=== PATIENT | female | born 2000 | race Caucasian/White ===

== ENCOUNTER 2024-09-06 15:13 | Emergency (ER) | payer OTHER, SELFPAY ==
[2024-09-06 15:27] VITALS: BP 126/85; PULSE 89; RESP 16; TEMP 36.9; O2SAT 97
--- NOTE | 2024-09-06 15:35 | ED.FEMALEGU ---
HPI - Female Genitourinary General Chief complaint: Urogenital-Female Stated complaint: tampon stuck Time Seen by Provider: 09/06/24 15:35 Source: patient, RN notes reviewed and old records reviewed Mode of arrival: ambulatory Limitations: no limitations History of Present Illness HPI Narrative: 23-year-old female presents to the [facility] with concerns she has a tampon stuck in the vagina. Patient reports it has been the nursing since p.m. last night. Currently on her menstrual cycle, started 3 days ago. Related Data Home Medications ?Medication ?Instructions ?Recorded ?Confirmed ?Last Taken ?Type albuterol sulfate 90 mcg/actuation inhalation 09/06/24 Unknown History aerosol inhaler Allergies Allergy/AdvReac Type Severity Reaction Status Date / Time No Known Allergies Allergy Verified 09/06/24 15:51 Review of Systems Review of Systems: All systems reviewed & are unremarkable except as noted in HPI and below Constitutional: Constitutional: Reports no additional constitutional complaints ENT: Reports system reviewed and no additional complaints, except as documented Cardiovascular: Cardiovascular: Reports no additional cardiovascular complaints, Denies chest pain and Denies dyspnea Respiratory: Respiratory: Reports no additional respiratory complaints, Denies chest congestion, Denies cough and Denies dyspnea Genitourinary: Genitourinary: Reports as per HPI Musculoskeletal: Musculoskeletal: Reports no additional musculoskeletal complaints Integumentary/Breasts: Skin/Breast: Reports system reviewed and no additional complaints, except as docu PMFSH Past Medical History Medical History Asthma Comments At the time of my signature, I reviewed and agree with the nursing past medical, surgical, social, and family history. There is no relevant family history pertinent to the patient complaint. Exam Const: General: cooperative, healthy appearing, comfortable, no acute distress, well developed, alert and well nourished Nutritional Appearance: well nourished Orientation/consciousness: patient oriented x3 Limitations: no limitations HENMT: Head: normal to inspection Eyes: General: appearance normal, both eyes and all related structures Alignment and Position: alignment normal Neck: Neck: normal visual inspection, full ROM, no lymphadenopathy and no meningeal signs Chest: Chest palpation & inspection: normal inspection of the chest Resp: Effort & Inspection: normal respiratory effort and able to speak in complete sentences Cardio: Rate: regular rate : General: Yes no CVA tenderness External Female Exam: normal external appearance Speculum Exam - Vagina: normal appearance of the vagina Speculum Exam - Cervix: normal appearance of the cervix and Other cervical findings present (Menses) Other: Chaperoned by Nicki ROMO, no foreign bodies noted. Patient currently on menstrual cycle Skin: General skin exam: normal color and no rashes or lesions noted Neuro: General: patient oriented x3, gait normal, moves all extremities and no meningeal signs Cognition (Neuro): normal cognition Speech: normal speech Gait exam (Neuro): Normal gait present Extrem: General: normal to inspection, full ROM, capillary refill normal and normal gait Psych: Appearance: grossly normal and well kempt Mental Status: mental status grossly normal Speech and movement: Normal speech and movement present and Clear speech present Affect: normal affect Attitude: cooperative Course Course Level of Care: Express Care Visit Vital Signs Vital signs: Vital Signs Temperature 98.5 F 09/06/24 15:27 Pulse Rate 89 09/06/24 15:27 Respiratory Rate 16 09/06/24 15:27 Blood Pressure 126/85 09/06/24 15:27 Pulse Oximetry 97 09/06/24 15:27 Oxygen Delivery Room Air 09/06/24 15:27 Temperature 98.5 F 09/06/24 15:27 Pulse Rate 89 09/06/24 15:27 Respiratory Rate 16 09/06/24 15:27 Blood Pressure 126/85 09/06/24 15:27 Pulse Oximetry 97 09/06/24 15:27 Oxygen Delivery Room Air 09/06/24 15:27 Reviewed MDM - Female Genitourinary MDM Narrative Medical decision making narrative: Patient sitting comfortably in exam room. Nontoxic, vitals stable. Patient is in no acute distress. Patient presents with concern for a tampon stuck. Pelvic exam done, chaperoned by Nicki ROMO No foreign bodies noted Patient appropriate for outpatient follow-up Discharge instructions reviewed with patient, as well as provided in writing per nursing staff. The instructions also include specific and strict return/GO TO THE ER as well as f/u information. All questions have been answered, and the patient deny any further questions with discharge and discharge plan. Some parts of this dictation were generated by voice recognition software and may contain typographical and/or grammatical inaccuracies. Differential Diagnosis Differential diagnosis: Likely other (Foreign body) Critical Care Time Critical Care Time Critical Care Time: No Discharge Plan Discharge Clinical Impression: Physically well but worried Patient Disposition: Home, Self-Care Condition: Stable Instructions: Antibiotic Form Additional Instructions: There was no tampon seen vaginally. It is important you do follow-up with a pick up worker provider and primary care provider to establish care. If you are having a hard time finding a physician please call our [facility] liaison at [phone]. Patient Language: Slovenian Prescriptions: No Action albuterol sulfate 90 mcg/actuation HFA aerosol inhaler INHALATION Follow-up/Referrals: Joaquin Ramesh MD [Physician] - PHYSICIAN,ADMISSION NURSE COORDINATOR [Primary Care Provider] - Temitope Sylvester DO [Physician] - Stand Alone Forms: Work/School Release IP Time of Disposition: 15:51
== END 2024-09-06 16:00 | disposition home or self-care (01) ==
PROVIDERS: Emergency Provider Nurse Practitioner
DX: Z03.823 Encounter for observation for suspected inserted (injected) foreign body ruled out (principal); J45.909 Unspecified asthma, uncomplicated
CPT/HCPCS: 99211; G0463

== ENCOUNTER 2024-09-25 08:55 | Outpatient (CLI) | payer OTHER, SELFPAY ==
--- OUTSIDE RECORDS SUMMARY | 2024-09-28 12:03 | XMS_ITS | Referral Summary ---
Author Organization [facility] Address [address] [place] [address] Care Team Providers Care Cloud Engagement Partner Name Role Phone Provider, No Pcp Primary Care Provider Unavailab le Source Comments [facility],non-owned Affiliates and Associated Physician Practices is amultiple site organization consisting of ambulatory clinics and hospital sitesin [place], [place]. This disclosure is being madepursuant to the Care Everywhere program and may not contain all information available regarding this patient. Last updated 18.[facility] Encounters Date Type Department Care Team Description 09/25/2024 Telephone [facility] - Endocrinology [address] [place] [phone] Kari Perez MD 09/08/2024 Orders Only [facility] - Endocr[facility] [address] [place] [phone] Kari Perez MD Hirsutism 09/04/2024 Telephone [facility] Endocrinology [address] [place] [phone] Kari Perez MD 08/09/2024 Travel 08/09/2024 2:20 PM VISUAL DESIGNER Office Visit [facility] - Endocrinology [address] [place] [phone] Kari Perez MD Hirsutism (Primary Dx) from Last 3 Months Allergies Active Allergy Reactions Criticality Noted Date Comments Shellfish-Derived Products Unknown Medications * Be aware that medications may not be up to date on this document. Alwaysverify current medications with the patient. Medication Sig Dispensed Refills Start Date End Date Status dexAMETHasone (Decadron) 1 MG tabletIndications: Hirsutism Take 1 (one) tablet by mouth once for 1 dose 1 tablet 09/08/2024 Active ketoconazole (Nizoral) 2 % shampooIndications :Rash and other nonspecific skin eruption Apply to wet hair, leave on for 3 minutes, then rinse; three times weekly. 30 days supply 120 mL 2 03/03/2024 09/08/2024 Discontinued (List Clean-Up) fluconazole (Diflucan) 150 MG tabletIndications: Rash and other nonspecific skin eruption Take 1 tablet by mouth, then in another week take another table by mouth 2 tablet 03/03/2024 09/08/2024 Discontinued (List Clean-Up) dexAMETHasone (Decadron) 1 MG tabletIndications: Hirsutism Take 1 (one) tablet by mouth once daily 30 tablet 08/09/2024 09/08/2024 Discontinued (Reorder) Active Problems No known active problems Social History Tobacco Use Types Packs/Day Years Used Date Smoking Tobacco: Never Sex and Gender Information Value Date Recorded Sex Assigned at Not on file Gender Identity Not on file Sexual Orientation Not on file Last Filed Vital Signs Vital Sign Reading Time Taken Comments Blood Pressure 107/79 08/09/2024 3:04 PM VISUAL DESIGNER Pulse 95 08/09/2024 3:04 PM VISUAL DESIGNER Temperature - - Respiratory Rate - - Oxygen Saturation 96% 08/09/2024 3:04 PM VISUAL DESIGNER Inhaled Oxygen Concentration - - Weight 87.1 kg (192 lb) 08/09/2024 3:04 PM VISUAL DESIGNER Height 165.1 cm (5' 5 ) 08/09/2024 3:04 PM VISUAL DESIGNER Body Mass Index 31.95 08/09/2024 3:04 PM VISUAL DESIGNER Plan of Treatment Upcoming Encounters Date Type Department Care Team (Late st Contact Info) Description 11/15/2024 3:40 PM CDT Office Visit [facility] - Endocrinology [address] [facility] [place] [phone] Kari Hernadez MD [address] [facility] [place] [address] Procedures Procedure Name Priority Date/Time Associated Diagnosis Comments HEMOGLOBIN A1C - POINT OF CARE (AMB) [facility] Routine 08/09/2024 3:19 PM VISUAL DESIGNER Hirsutism from Last 3 Months Results * HEMOGLOBIN A1C - POINT OF CARE (AMB) [facility] (08/09/2024 3:19 PM VISUAL DESIGNER) Hemoglobin A1c POCT 7.1 % LESLEY Johnson [facility] BLOOD SPECIMEN / Unknown 08/09/2024 3:19 PM VISUAL DESIGNER Dang Jay MD LAB - POINT OF CARE ORDERABLES [facility] [address] [facility] [address] [facility], [place] [address], [facility] [phone] from Last 3 Months Care Teams Cloud Engagement Partner Relationship Specialty Start Date End Date Provider, No Pcp PCP - General 03/08/24
--- OUTSIDE RECORDS SUMMARY | 2024-09-28 12:03 | XMS_ITS | Encounter Summary ---
Author Organization [facility] Address [address] [facility] [place] [address] Care Team Providers Care Perinatal Instructor Name Role Phone Provider, No Pcp Primary Care Provider Unavailab le Encounter Details Date Type Department Care Team (Late st Contact Info) Description 09/25/2024 Telephone [facility] - Endocr[facility]ology [address] [facility] [place] [phone] Kari Hernadez MD [address] [facility] [place] [address] Social History Tobacco Use Types Packs/Day Years Used Date Smoking Tobacco: Never Sex and Gender Information Value Date Recorded Sex Assigned at Not on file Gender Identity Not on file Sexual Orientation Not on file documented as of this encounter Miscellaneous Notes * Telephone Encounter - Ceci Sweeney - 09/25/2024 8:29 AM CST Current Provider: Raymond Kirkpatrick/ Dr. Howard Reason for Call: Ms. Rachel Mckeon has numerous orders for labs. She is at [facility], she did take the pill so they need the labs faxed over [employer] so sera can get labs done. It is a two day process/ FAX [phone]. They are there now and would like to get it completed. Please call father when faxed. Ramiro Farmer - [phone] Thanks. Patient Call Back Number: [phone] Father Ramiro Farmer AL SPECIALIST documented in this encounter Plan of Treatment Upcoming Encounters Date Type Department Care Team (Late Contact Info) Description 11/15/2024 3:40 PM CDT Office Visit [facility] - Endocrinology [address] [facility] [place] [address] Kari Hernadez MD [address] [facility] [place] [address] documented as of this encounter Visit Diagnoses Not on filedocumented in this encounter Care Teams Perinatal Instructor Relationship Specialty Start Date End Date Provider, No Pcp PCP - General 03/08/24 documented as of this encounter
--- OUTSIDE RECORDS SUMMARY | 2024-09-28 12:03 | XMS_ITS | Clinical Summary ---
Author Organization [facility] Address [address] [place] [address] Care Team Providers Care Equipment Tester Name Role Phone Provider, No Pcp Primary Care Provider Unavailab le Source Comments [facility],non-owned Affiliates and Associated Physician Practices is amultiple site organization consisting of ambulatory clinics and hospital sitesin [place], [place], [place] and [place]. This disclosure is being madepursuant to the Care Everywhere program and may not contain all information available regarding this patient. Last updated 18.[facility] Allergies Active Allergy Reactions Criticality Noted Date [...] (Reorder) Active Problems No known active problems Encounters Date Type Department Care Team Description 09/25/2024 Telephone [facility] - Endocrinology [address] [place] [phone] Kari Perez MD 09/08/2024 Orders Only [facility] - Endocrinology [address] [place] [phone] Kari Perez MD Hirsutism 09/04/2024 Telephone [facility] Endocrinology [address] [place] [phone] Kari Perez MD 08/09/2024 2:20 PM SKY DIVER Office Visit [facility] - Endocrinology [address] [place] [phone] Kari Perez MD Hirsutism (Primary Dx) 08/09/2024 Travel from Last 3 Months Social History Tobacco Use Types Packs/Day Years Used Date Smoking Tobacco: Never Sex and Gender Information Value Date Recorded Sex Assigned at Not on file Gender Identity Not on file Sexual Orientation Not on file Last Filed Vital Signs Vital Sign Reading Time Taken Comments Blood Pressure 107/79 08/09/2024 3:04 PM SKY DIVER Pulse 95 08/09/2024 3:04 PM SKY DIVER Temperature - - Respiratory Rate - - Oxygen Saturation 96% 08/09/2024 3:04 PM SKY DIVER Inhaled Oxygen Concentration - - Weight 87.1 kg (192 lb) 08/09/2024 3:04 PM SKY DIVER Height 165.1 cm (5' 5 ) 08/09/2024 3:04 PM SKY DIVER Body Mass Index 31.95 08/09/2024 3:04 PM SKY DIVER Plan of Treatment Upcoming Encounters Date Type Department Care Team (Late st Contact Info) Description 11/15/2024 3:40 PM CDT Office Visit [facility] - Endocrinology [address] [place] [phone] Kari Hernadez MD [address] [place] [address] Health Maintenance Due Date Last Done Comments PAP SMEAR 2000 HIV SCREENING 2015 HPV VACCINE (1 - 3-dose series) 2015 CHLAMYDIA/GONORRHEA SCREENING 2016 MENINGOCOCCAL (Group B) VACC INE (1 of 2 - Standard) 2016 HEPATITIS C SCREENING 09/29/2018 DTAP/TDAP/TD VACCINES (1 - Tdap) 2019 HEPATITIS B VACCINE (1 of 3 - 19+ 3-dose series) 2019 COVID-19 VACCINE (1 - 2023-2 5 season) 2024 INFLUENZA VACCINE (#1) 2024 DEPRESSION SCREENING 09/06/2024 ZOSTER VACCINE (1 of 2) 2050 HIB VACCINE Aged Out No longer eligi ble based on patient's age to complete this topic MENINGOCOCCAL VACCINE Aged Out No bridget maine eligible based on patient's age to complete this topic PNEUMOCOCCAL VACCINE Aged Out No long er eligible based on patient's age to complete this topic Procedures Procedure Name Priority Date/Time Associated Diagnosis Comments HEMOGLOBIN A1C - POINT OF CARE (AMB) [facility] Routine 08/09/2024 3:19 PM SKY DIVER Hirsutism from Last 3 Months Results * HEMOGLOBIN A1C - POINT OF CARE (AMB) [facility] (08/09/2024 3:19 PM SKY DIVER) Hemoglobin A1c POCT 7.1 % [facility] [address] BLOOD SPECIMEN / Unknown 08/09/2024 3:19 PM SKY DIVER Dang Jay MD LAB - POINT OF CARE ORDERABLES [facility] [address] [address] [facility] [place] [address], [facility] [phone] from Last 3 Months Care Teams Equipment Tester Relationship Specialty Start Date End Date Provider, No Pcp PCP - General 03/08/24
--- OUTSIDE RECORDS SUMMARY | 2024-09-28 12:03 | XMS_ITS | Encounter Summary ---
Author Organization [facility] Address [facility] [place] [address] Care Team Providers Care Bar Catcher Name Role Phone Provider, No Pcp Primary Care Provider Unavailab le Reason for Visit * Reason Onset Date Comments Returned Call 03/03/2024 Encounter Details Date Type Department Care Team (Late Contact Info) Description 03/03/2024 Telephone [facility] Dermatology [address] [facility], [place] [phone] Connie Angeles MD [address] [place] [address] Returned Call Social History Tobacco Use Types Packs/Day Years Used Date Smoking Tobacco: Never Assessed Sex and Gender Information Value Date Recorded Sex Assigned at Not on file Gender Identity Not on file Sexual Orientation Not on file documented as of this encounter Miscellaneous Notes * Telephone Encounter - Nargis Perry - 03/03/2024 1:33 PM CDT Pts father called stating they need to speak with the Dr about a voicemail that was sent and need clarification from. documented in this encounter Plan of Treatment Upcoming Encounters Date Type Department Care Team (Late st Contact Info) Description 11/15/2024 3:40 PM CDT Office Visit [facility] - Endocrinology [address] [facility] [place] [phone] Kari Hernadez MD [address] [place] [address] documented as of this encounter Visit Diagnoses Not on filedocumented in this encounter Care Teams Bar Catcher Relationship Specialty Start Date End Date Provider, No Pcp PCP - General 03/08/24 documented as of this encounter
--- OUTSIDE RECORDS SUMMARY | 2024-09-28 12:03 | XMS_ITS | Encounter Summary ---
Author Organization [facility] Address [address] [place] [address] [place] [address] Care Team Providers Care Behavioral Health Counselor Name Role Phone Provider, No Pcp Primary Care Provider Unavailab le Encounter Details Date Type Department Care Team (Late Contact Info) Description 09/04/2024 Telephone [facility] - Endocrinology [address] [place] [phone] Kari Hernadez MD [address] [facility] [place] [address] Social History Tobacco Use Types Packs/Day Years Used Date Smoking Tobacco: Never Sex and Gender Information Value Date Recorded Sex Assigned at Not on file Gender Identity Not on file Sexual Orientation Not on file documented as of this encounter Miscellaneous Notes * Telephone Encounter - Verna Aguero - 09/04/2024 12:17 PM CST Patient called needing a singular pill needed for a blood test. States the pharmacy never received the prescription. Call back number is [phone] Can leave detailed [id number] - [address] [place] [phone] [address] IO HAND documented in this encounter Plan of Treatment Upcoming Encounters Date Type Department Care Team (Late Contact Info) Description 11/15/2024 3:40 PM CDT Office Visit [facility] - Endocrinology [address] [place] [phone] Kari Hernadez MD [address] [facility] [place], [place] [id number] documented as of this encounter Visit Diagnoses Not on filedocumented in this encounter Care Teams Behavioral Health Counselor Relationship Specialty Start Date End Date Provider, No Pcp PCP - General 03/08/24 documented as of this encounter
--- OUTSIDE RECORDS SUMMARY | 2024-09-28 12:03 | XMS_ITS | Patient Health Summary ---
Author Organization [facility] Address [address] [place] [address] Care Team Providers Care Legal Referee Name Role Phone Provider, No Pcp Primary Care Provider Unavailab le Note from [facility],non-owned Affiliates and Associated Physician Practices is amultiple site organization consisting of ambulatory clinics and hospital sitesin [place], [place], [place] and [place]. This disclosure is being madepursuant to the Care Everywhere program and may not contain all information available regarding this patient. Last updated 18.[facility] Allergies * Shellfish-Derived Products(Unknown) Medications * Be aware that medications may not be up to date on this document. Alwaysverify current medications with the patient. * dexAMETHasone (Decadron) 1 MG tablet(Started 09/08/2024) Take 1 (one) tablet by mouth once for 1 dose Ended Medications* ketoconazole (Nizoral) 2 % shampoo(Started 03/03/2024) (Discontinued) Apply to wet hair, leave on for 3 minutes, then rinse; three times weekly. 30 days supply 2 refills by 03/03/2025 * fluconazole (Diflucan) 150 MG tablet(Started 03/03/2024)(Discontinued) Take 1 tablet by mouth, then in another week take another table by mouth * dexAMETHasone (Decadron) 1 MG tablet(Started 08/09/2024)(Discontinued) Take 1 (one) tablet by mouth once daily Active Problems No known active problems Social History Tobacco Use Types Packs/Day Years Used Date Smoking Tobacco: Never Sex and Gender Information Value Date Recorded Sex Assigned at Not on file Gender Identity Not on file Sexual Orientation Not on file Last Filed Vital Signs Vital Sign Reading Time Taken Comments Blood Pressure 107/79 08/09/2024 3:04 PM PLOW MECHANIC Pulse 95 08/09/2024 3:04 PM PLOW MECHANIC Temperature - - Respiratory Rate - - Oxygen Saturation 96% 08/09/2024 3:04 PM PLOW MECHANIC Inhaled Oxygen Concentration - - Weight 87.1 kg (192 lb) 08/09/2024 3:04 PM PLOW MECHANIC Height 165.1 cm (5' 5 ) 08/09/2024 3:04 PM PLOW MECHANIC Body Mass Index 31.95 08/09/2024 3:04 PM PLOW MECHANIC Procedures * HEMOGLOBIN A1C - POINT OF CARE (AMB) [facility](Performed 08/09/2024) Performed for Hirsutism * [place] PUNCH BX SKIN EA SEP ADDL(Performed 02/28/2024) Performed for Rash and other nonspecific skin eruption * [place] PUNCH BX SKIN SINGLE LESION(Performed 02/28/2024) Performed for Rash and other nonspecific skin eruption * DERMATOPATHOLOGY(Performed 02/28/2024) Performed for Rash and other nonspecific skin eruption Results * HEMOGLOBIN A1C - POINT OF CARE (AMB) [facility] (08/09/2024 3:19 PM PLOW MECHANIC) Hemoglobin A1c POCT 7.1 % [address] BLOOD SPECIMEN / Unknown 08/09/2024 3:19 PM PLOW MECHANIC Dang Jay MD LAB - POINT OF CARE ORDERABLES [address] [place] [address], [facility] [phone] * [place] PUNCH BX SKIN SINGLE LESION, [place] PUNCH BX SKIN EA SEP ADDL (02/28/2024 3:06 PM CDT) Narrative Odilia Poon MD - 02/28/2024 3:06 PM CDT Connie Angeles MD ? 02/28/2024 ??3:06 PM Risks, benefits and alternatives to punch biopsy were discussed with the patient. Verbal consent was obtained. Location: right flank A and B Punch biopsy: 4mm Skin prep: Alcohol Anesthesia: Lidocaine 1% with epinephrine Closure: 4-0 nylon suture Dressing and wound care discussed. Patient agrees to phone call for results and message if not available. Connie Angeles MD PGY-2 Dermatology Resident Odilia Poon MD PROCEDURE/MINOR SURG ICAL ORDERABLES * DERMATOPATHOLOGY (02/28/2024 12:00 AM CDT) Case Report Dermatopathology Report ? Case: [id number] ? Authorizing Provider: ??Odilia Poon MD ? Collected: ? 02/28/2024 12:00 AM ? Ordering Location: ? [facility] - ??Received: ?02/28/2024 04:03 PM ? Dermatology ? Pathologist: ? Jessica Summers, ? MD ? Specimens: ?? A) - Skin, right flank A ? B) - Skin, right flank B ? 4 4:28 PM CDT DERMATOPATHOLOGY LABORATORY Final Diagnosis Specimen A. SKIN, right flank A: TINEA VERSICOLOR (B36.0) Specimen B. SKIN, right flank B: TINEA VERSICOLOR (B36.0) 4 4:28 PM T DERMATOPATHOLOGY LABORATORY Clinical History A-B: Vitiligo v TV v other 4 4:28 PM T DERMATOPATHOLOGY LABORATORY Gross Description Specimen A: Received is one formalin filled container labeled with the patient's name and designated right flank A. The specimen consists of a punch biopsy measuring 3x3x3 mm. Jar 0. Specimen B: Received is one formalin filled container labeled with the patient's name and designated right flank B. The specimen consists of a punch biopsy measuring 4x4x4 mm. Jar 0. 4 4:28 PM T DERMATOPATHOLOGY LABORATORY Microscopic Description Specimen A. SKIN, right flank A: In the stratum corneum, there are focal basophilic hyphae and spores that resemble spaghetti and meatballs which are highlighted by a Grocott's methenamine silver (GMS) stain. MART-1/Melan-A staining highlights regular periodicity of melanocytes along the dermoepidermal junction. Redbird Sherrie stain highlights melanin in the epidermis. Specimen B. SKIN, right flank B: In the stratum corneum, there are numerous basophilic hyphae and spores that resemble spaghetti and meatballs which are highlighted by a Grocott's methenamine silver (GMS) stain. MART-1/Melan-A staining highlights regular periodicity of melanocytes along the dermoepidermal junction. Yeny Sherrie stain highlights melanin in the epidermis. 4:28 PM CDT DERMATOPATHOLOGY LABORATORY Disclaimer An external and internal positive and negative controls are appropriate for the histochemical, immunohistochemical and immunofluorescence stain(s) in this case (if any), except where stated explicitly. The performance characteristics of the stain(s) cited in this report were developed and its performance characteristic determined by the Dermatopathology Laboratory at [facility], directed by Dr. Barrett Perrin. These tests need not be, and therefore are not, approved by the [place] Food and Drug Administration. The tests are used for clinical purposes. Billing Codes Specimen Charges Stain Charges 57952 21442 1 1 92574 14558 72310 65914 98517 23583 1 1 1 1 1 1 4:28 PM CDT DERMATOPATHOLOGY LABORATORY Embedded Images 4:28 PM CDT DERMATOPATHOLOGY LABORATORY Pathology/Cytology TISSUE SPECIMEN FROM SKIN / Unknown 02/28/2024 02/28/2024 4:03 PM CDT Miscellaneous samples (specimen) TISSUE SPECIMEN FROM SKIN / Unknown 02/28/2024 02/28/2024 4:03 PM CDT Odilia Poon MD LAB - PATHOLOGY/CYTO LOGY ORDERABLES DERMATOPATHOLOGY LABORATORY [facility] - Department of Dermatology [address], [address] [phone] Care Teams Legal Referee Relationship Specialty Start Date End Date Provider, No Pcp PCP - General 03/08/24
--- OUTSIDE RECORDS SUMMARY | 2024-09-28 12:04 | XMS_ITS | Clinical Summary ---
Author Organization [facility] Address [address] [place] [address]. [place] [address] [place] [address] Care Team Providers Care Aluminum Pool Installer Name Role Phone None, Provider MD Primary Care Provider Unavaila ble Allergies Active Allergy Reactions Criticality Noted Date Comments Shellfish-Derived Products Unknown 0 Medications No known medications Active Problems No known active problems Social History Tobacco Use Types Packs/Day Years Used Date Smoking Tobacco: Every Day Electronic Cigarettes Smokeless Tobacco: Never Tobacco Cessation:Ready to Q uit: Not Asked; Counseling Given: Not Answered Comments No Sex and Gender Information Value Date Recorded Sex Assigned at Not on file Legal Sex Female 9:19 AM CDT Gender Identity Not on file Sexual Orientation Not on file Last Filed Vital Signs Vital Sign Reading Time Taken Comments Blood Pressure 91/64 04/20/2024 8:30 PM CDT Pulse 71 04/20/2024 8:30 PM CDT Temperature 37 ??C (98.6 ??F) 04/20/2024 8:30 PM CDT Respiratory Rate 17 04/20/2024 8:30 PM CDT Oxygen Saturation 96% 04/20/2024 8:30 PM CDT Inhaled Oxygen Concentration - - Weight 91.4 kg (201 lb 8 oz) 04/20/2024 6:37 PM CDT Height 162.6 cm (5' 4 ) 04/20/2024 6:37 PM CDT Body Mass Index 34.59 04/20/2024 6:37 PM CDT Plan of Treatment Health Maintenance Due Date Last Done Comments Cervical Cancer Screening Pap Smear (Age 21 to 29) Every 3 Years 2000 Cervical Cancer Screening 2000 Annual Physical 2003 Pneumococcal Vaccine: Pediatrics (0 to 5 Years) and At-Risk Patients (6 to 64 Years) (1 of 2 - PCV) 2006 DTaP, Tdap and Td Vaccines (6 - Tdap) 2011 01/13/2005, 12/28/2001, 04/18/2001, Additional history exists HPV Vaccines (1 - 3-dose series) 2015 Hepatitis C 2018 Hepatitis B Vaccines (1 of 3 - 19+ 3-dose series) 2019 COVID-19 Vaccine (1 - 2023- season) 2024 Influenza Adult (#1) 2024 Meningococcal Vaccine Completed 06/07/2018 RSV Immunizations Under 20 Months Aged Out No longer eligible based on patient's age to complete this topic Insurance Care Teams Aluminum Pool Installer Relationship Specialty Start Date End Date None, Provider, MD PCP - General UNKNOWN PHYSICIAN SPECIALTY 07/09/23
== END 2024-09-25 08:56 | disposition home or self-care (01) ==
DX: L68.0 Hirsutism (principal)
CPT/HCPCS: 36415; 80299

== ENCOUNTER 2024-11-10 10:15 | Outpatient (CLI) | payer OTHER, SELFPAY ==
--- OUTSIDE RECORDS SUMMARY | 2024-11-10 11:13 | XMS_ITS | Encounter Summary ---
Author Organization [facility] Address [employer] [place] [address] Care Team Providers Care Coal Screener Name Role Phone Provider, No Pcp Primary Care Provider Unavailab le Encounter Details Date Type Department Care Team (Late Contact Info) Description 09/04/2024 Telephone [facility] - Endocrinology [address] [place] [phone] Kari Montano MD [address] [place] [phone] Social History Tobacco Use Types Packs/Day Years [...] received the prescription. Call back number is [phone] Can leave detailed [id number] - [phone] [place] [phone] [address] TRAILER MECHANIC documented in this encounter Plan of Treatment Upcoming Encounters Date Type Department Care Team (Late Contact Info) Description 11/15/2024 3:40 PM CDT Office Visit [facility] - Endocrinology [address] [place] [phone] Kari Montano MD [address] [place] [phone] documented as of this encounter Visit Diagnoses Not on filedocumented in this encounter Care Teams Coal Screener Relationship Specialty Start Date End Date Provider, No Pcp PCP - General 03/08/24 documented as of this encounter
--- OUTSIDE RECORDS SUMMARY | 2024-11-10 11:13 | XMS_ITS | Clinical Summary ---
Author Organization [facility] Address [address] [place] [address] Care Team Providers Care Refrigerator Cabinetmaker Name Role Phone Provider, No Pcp Primary Care Provider Unavailab le Source Comments [facility],non-owned Affiliates and Associated Physician Practices is amultiple site organization consisting of ambulatory clinics and hospital sitesin [place], [place], [place] and [place]. This disclosure is being madepursuant to the Care Everywhere program and may not contain all information available regarding this patient. Last updated 18.[facility] [employer] Allergies Active Allergy Reactions Criticality Noted Date Comments Shellfish-Derived Products Unknown Medications * Be aware that medications may not be up to date on this document. Alwaysverify current medications with the patient. Medication Sig Dispensed Refills Start Date End Date Status dexAMETHasone (Decadron) 1 MG tabletIndications:Hirs utism Take 1 (one) tablet by mouth once for 1 dose 1 tablet 09/08/2024 Active Active Problems No known active problems Encounters Date Type Department Care Team Description 09/25/2024 Telephone [facility] - Endocrinology [address] [place] [address], [place] [phone] Kari Montano MD 09/08/2024 Orders Only [facility] - Endocrinology [address] [place] [phone] Kari Montano MD Hirsutism 09/04/2024 Telephone [facility] - Endocrinology [address] [place] [place] [phone] Kari Montano MD from Last 3 Months Social History Tobacco Use Types Packs/Day Years Used Date Smoking Tobacco: Never Sex and Gender Information Value Date Recorded Sex Assigned at Not on file Gender Identity Not on file Sexual Orientation Not on file Last Filed Vital Signs Vital Sign Reading Time Taken Comments Blood Pressure 107/79 08/09/2024 3:04 PM SECURITY CONTROL ROOM OFFICER Pulse 95 08/09/2024 3:04 PM SECURITY CONTROL ROOM OFFICER Temperature - - Respiratory Rate - - Oxygen Saturation 96% 08/09/2024 3:04 PM SECURITY CONTROL ROOM OFFICER Inhaled Oxygen Concentration - - Weight 87.1 kg (192 lb) 08/09/2024 3:04 PM SECURITY CONTROL ROOM OFFICER Height 165.1 cm (5' 5 ) 08/09/2024 3:04 PM SECURITY CONTROL ROOM OFFICER Body Mass Index 31.95 08/09/2024 3:04 PM SECURITY CONTROL ROOM OFFICER Plan of Treatment Upcoming Encounters Date Type Department Care Team (Late st Contact Info) Description 11/15/2024 3:40 PM CDT Office Visit [facility] - Endocrinology [address] [facility] [place] [phone] Kari Montano MD [address] [place] [address] Health Maintenance Due Date Last Done Comments PAP SMEAR 2000 HIV SCREENING 2015 HPV VACCINE (1 - 3-dose series) 2015 CHLAMYDIA/GONORRHEA SCREENING 2016 HEPATITIS C SCREENING 09/29/2018 DTAP/TDAP/TD VACCINES (1 - Tdap) 2019 HEPATITIS B VACCINE (1 of 3 - 19+ 3-dose series) 2019 COVID-19 VACCINE (1 - 2023-2 5 season) 2024 INFLUENZA VACCINE (#1) 2024 DEPRESSION SCREENING 09/06/2024 ZOSTER VACCINE (1 of 2) 2050 HIB VACCINE Aged Out No longer eligi ble based on patient's age to complete this topic MENINGOCOCCAL (Group B) VACCINE Aged Out No longer eligible based on patient's age to complete this topic MENINGOCOCCAL VACCINE Aged Out No bridget maine eligible based on patient's age to complete this topic PNEUMOCOCCAL VACCINE Aged Out No long er eligible based on patient's age to complete this topic Care Teams Refrigerator Cabinetmaker Relationship Specialty Start Date End Date Provider, No Pcp PCP - General 03/08/24
--- OUTSIDE RECORDS SUMMARY | 2024-11-10 11:13 | XMS_ITS | Referral Summary ---
Author Organization [facility] Address [address] [place] [address] Care Team Providers Care Letter Stamping Machine Operator Name Role Phone Provider, No Pcp Primary Care Provider Unavailab le Source Comments [facility],non-owned Affiliates and Associated Physician Practices is amultiple site organization consisting of ambulatory clinics and hospital sitesin [place], [place], [place] and [place]. This disclosure is being madepursuant to the Care Everywhere program and may not contain all information available regarding this patient. Last updated 18.[facility] Encounters Date Type Department Care Team Description 09/25/2024 Telephone [facility] - Endocrinology [address] [place] [address], [place] [phone] Kari Montano MD 09/08/2024 Orders Only [facility] - Endocrinology [address] [place] [phone] Kari Montano MD Hirsutism 09/04/2024 Telephone [facility] - Endocrinology [address] [place] [phone] Kari Montano MD from Last 3 Months Allergies Active Allergy [...] Active Active Problems No known active problems Social History Tobacco Use Types Packs/Day Years Used Date Smoking Tobacco: Never Sex and Gender Information Value Date Recorded Sex Assigned at Not on file Gender Identity Not on file Sexual Orientation Not on file Last Filed Vital Signs Vital Sign Reading Time Taken Comments Blood Pressure 107/79 08/09/2024 3:04 PM ELECTRICAL CONTROL ASSEMBLER Pulse 95 08/09/2024 3:04 PM ELECTRICAL CONTROL ASSEMBLER Temperature - - Respiratory Rate - - Oxygen Saturation 96% 08/09/2024 3:04 PM ELECTRICAL CONTROL ASSEMBLER Inhaled Oxygen Concentration - - Weight 87.1 kg (192 lb) 08/09/2024 3:04 PM ELECTRICAL CONTROL ASSEMBLER Height 165.1 cm (5' 5 ) 08/09/2024 3:04 PM ELECTRICAL CONTROL ASSEMBLER Body Mass Index 31.95 08/09/2024 3:04 PM ELECTRICAL CONTROL ASSEMBLER Plan of Treatment Upcoming Encounters Date Type Department Care Team (Late st Contact Info) Description 11/15/2024 3:40 PM CDT Office Visit [facility] - Endocrinology [address] [facility], [place] [phone] Kari Montano MD [address] [place] [address] Care Teams Letter Stamping Machine Operator Relationship Specialty Start Date End Date Provider, No Pcp PCP - General 03/08/24
--- OUTSIDE RECORDS SUMMARY | 2024-11-10 11:13 | XMS_ITS | Clinical Summary ---
Author Organization [facility] Address [address] [place] [address] Care Team Providers Care Documentum Consultant Name Role Phone None, Provider MD Primary [...] 71 04/20/2024 8:30 PM CDT Temperature 37 C (98.6 F) 04/20/2024 8:30 PM CDT Respiratory Rate 17 [...] - 19+ 3-dose series) 2019 COVID-19 Vaccine ( - 2023- season) 2024 Influenza Adult (#1) 2024 Meningococcal Vaccine Completed 06/07/2018 Meningococcal B Vaccine Aged Out No l onger eligible based on patient's age to complete this topic RSV Immunizations Under 20 Months Aged Out No longer eligible based on patient's age to complete this topic Insurance POOL Care Teams Documentum Consultant Relationship Specialty Start Date End Date None, Provider, MD PCP - General UNKNOWN PHYSICIAN SPECIALTY 07/09/23
--- OUTSIDE RECORDS SUMMARY | 2024-11-10 11:13 | XMS_ITS | Patient Health Summary ---
Author Organization [facility] Address [address] [place] [address] Care Team Providers Care Corporate Driver Name Role Phone Provider, No Pcp Primary Care Provider Unavailab le Note from [facility],non-owned Affiliates and Associated Physician Practices is amultiple site organization consisting of ambulatory clinics and hospital sitesin [place], [place], [place] and [place]. This disclosure is being madepursuant to the Care Everywhere program and may not contain all information available regarding this patient. Last updated 18.[facility] [email or web address] Allergies * Shellfish-Derived Products(Unknown) Medications * Be aware that medications may not be up to date on this document. Alwaysverify current medications with the patient. * dexAMETHasone (Decadron) 1 MG tablet(Started 09/08/2024) Take 1 (one) tablet by mouth once for 1 dose Active Problems No known active problems Social History Tobacco Use Types Packs/Day Years Used Date Smoking Tobacco: Never Sex and Gender Information Value Date Recorded Sex Assigned at Not on file Gender Identity Not on file Sexual Orientation Not on file Last Filed Vital Signs Vital Sign Reading Time Taken Comments Blood Pressure 107/79 08/09/2024 3:04 PM GATEKEEPER Pulse 95 08/09/2024 3:04 PM GATEKEEPER Temperature - - Respiratory Rate - - Oxygen Saturation 96% 08/09/2024 3:04 PM GATEKEEPER Inhaled Oxygen Concentration - - Weight 87.1 kg (192 lb) 08/09/2024 3:04 PM GATEKEEPER Height 165.1 cm (5' 5 ) 08/09/2024 3:04 PM GATEKEEPER Body Mass Index 31.95 08/09/2024 3:04 PM GATEKEEPER Procedures * HEMOGLOBIN A1C - POINT OF CARE (AMB) [facility](Performed 08/09/2024) Performed for Hirsutism * [place] PUNCH BX SKIN EA SEP ADDL(Performed 02/28/2024) Performed for Rash and other nonspecific skin eruption * [place] PUNCH BX SKIN SINGLE LESION(Performed 02/28/2024) Performed for Rash and other nonspecific skin eruption * DERMATOPATHOLOGY(Performed 02/28/2024) Performed for Rash and other nonspecific skin eruption Results * HEMOGLOBIN A1C - POINT OF CARE (AMB) [facility] (08/09/2024 3:19 PM GATEKEEPER) Hemoglobin A1c POCT 7.1 % [address] BLOOD SPECIMEN / Unknown 08/09/2024 3:19 PM GATEKEEPER Dang Jay MD LAB - POINT OF CARE ORDERABLES [address] [place] [address], [facility] [phone] * [place] PUNCH BX SKIN SINGLE LESION, [place] PUNCH BX SKIN EA SEP ADDL (02/28/2024 3:06 PM CDT) Narrative Odilia Poon MD - 02/28/2024 3:06 PM CDT Connie Angeles MD 02/28/2024 3:06 PM Risks, benefits and alternatives to punch [...] 12:00 AM CDT) Case Report Dermatopathology Report Case: [id number] Authorizing Provider: Odilia Poon MD Collected: 02/28/2024 12:00 AM Ordering Location: [facility] - Received: 02/28/2024 04:03 PM Dermatology Pathologist: Jessica Summers MD Specimens: A) - Skin, right flank A B) - Skin, right flank B 4:28 PM [facility] DERMAT[facility]ORATORY Final Diagnosis Specimen A. SKIN, right flank A: TINEA VERSICOLOR (B36.0) Specimen B. SKIN, right flank B: TINEA VERSICOLOR (B36.0) 4:28 PM [facility] DERMATOPATHOLOGY [facility]ORATORY Clinical History A-B: Vitiligo v TV v other 4:28 PM [facility] DERMATOPATHOLOGY LABORATORY Gross Description Specimen A: Received [...] punch biopsy measuring 4x4x4 mm. Jar 0. 4:28 PM [facility] DERMATOPATHOLOGY LABORATORY Microscopic Description Specimen A. SKIN, [...] highlights melanin in the epidermis. 4:28 PM T DERMATOPATHOLOGY LABORATORY Disclaimer An external and internal positive and negative controls are appropriate for the histochemical, immunohistochemical and immunofluorescence stain(s) in this case (if any), except where stated explicitly. The performance characteristics of the stain(s) cited in this report were developed and its performance characteristic determined by the Dermatopathology Laboratory at [facility], directed by Dr. Barrett Perrin. These tests need not be, and therefore are not, approved by the [place] Food and Drug Administration. The tests are used for clinical purposes. Billing Codes Specimen Charges Stain Charges 31601 58550 1 1 09832 07213 29422 59050 80761 57008 1 1 1 1 1 1 4 4:28 PM CDT DERMATOPATHOLOGY LABORATORY Embedded Images 4:28 PM CDT DERMATOPATHOLOGY LABORATORY Pathology/Cytology TISSUE SPECIMEN FROM SKIN / Unknown 02/28/2024 02/28/2024 4:03 PM CDT Miscellaneous samples (specimen) TISSUE SPECIMEN FROM SKIN / Unknown 02/28/2024 02/28/2024 4:03 PM CDT Odilia Poon MD LAB - PATHOLOGY/CYTO LOGY ORDERABLES DERMATOPATHOLOGY LABORATORY [facility] - Department of Dermatology [address], [address] [phone] Care Teams Corporate Driver Relationship Specialty Start Date End Date Provider, No Pcp PCP - General 03/08/24
--- OUTSIDE RECORDS SUMMARY | 2024-11-10 11:13 | XMS_ITS | Encounter Summary ---
Author Organization [facility] Address [facility] [place] [address] Care Team Providers Care Wind Energy Systems Installer Name Role Phone Provider, No Pcp Primary Care Provider Unavailab le Reason for Visit * Reason Onset Date Comments Returned Call 03/03/2024 Encounter Details Date Type Department Care Team (Late Contact Info) Description 03/03/2024 Telephone [facility] - Dermatology [address] [place] [phone] Connie Angeles MD [address] [place] [phone] Returned Call Social History Tobacco Use [...] Office Visit [facility] - Endocrinology [address] [place] [phone] Kari Montano MD [address] [place] [phone] documented as of this encounter Visit Diagnoses Not on filedocumented in this encounter Care Teams Wind Energy Systems Installer Relationship Specialty Start Date End Date Provider, No Pcp PCP - General 03/08/24 documented as of this encounter
--- OUTSIDE RECORDS SUMMARY | 2024-11-10 11:13 | XMS_ITS | Encounter Summary ---
Author Organization [facility] Address [address] [facility] [place] [address] Care Team Providers Care Tobacco Classer Name Role Phone Provider, No Pcp Primary Care Provider Unavailab le Encounter Details Date Type Department Care Team (Late st Contact Info) Description 09/25/2024 Telephone [facility] End[facility]ology [address] [facility] [phone] Kari Montano MD [address] [place] [address] Social History Tobacco Use Types [...] numerous orders for labs. She is at [facility], she did take the pill so they need the labs faxed over [employer] so sera can get labs done. It is a two day process/ FAX [phone]. They are there now and would like to get it completed. Please call father when faxed. Ramiro Farmer - [phone] Thanks. Patient Call Back Number: [phone] Father Ramiro Farmer A'S HELPER documented in this encounter Plan of Treatment Upcoming Encounters Date Type Department Care Team (Late Contact Info) Description 11/15/2024 3:40 PM CDT Office Visit [facility] [address] [facility] [place] [address] Kari Montano MD [address] [place] [address] documented as of this encounter Visit Diagnoses Not on filedocumented in this encounter Care Teams Tobacco Classer Relationship Specialty Start Date End Date Provider, No Pcp PCP - General 03/08/24 documented as of this encounter
[2024-11-10 12:20] LABS: Cortisol Random 7.99 ug/dL
[2024-11-12 04:04] LABS: DHEA-Sulfate 268 mcg/dL (14-349); FSH 7.4 mIU/mL; Prolactin 11.4 ng/mL
== END 2024-11-10 10:16 | disposition home or self-care (01) ==
DX: L68.0 Hirsutism (principal)
CPT/HCPCS: 36415; 82533; 82627; 82670; 83001; 83002; 83498; 84146; 84402; 84403

== ENCOUNTER 2024-12-12 10:31 | Outpatient (CLI) | payer OTHER, SELFPAY ==
--- OUTSIDE RECORDS SUMMARY | 2024-12-12 11:49 | XMS_ITS | Encounter Summary ---
Author Organization [facility] Address [address] [facility] [place] [address] Care Team Providers Care User Experience Designer Name Role Phone Provider, No Pcp Primary Care Provider Unavailab le Encounter Details Date Type Department Care Team (Late st Contact Info) Description 09/25/2024 Telephone [facility] End[facility] [address] [facility] [place] [phone] Kari Montano MD [address] [place], [place] [phone] Social History Tobacco Use Types Packs/Day Years [...] numerous orders for labs. She is at [facility], she did take the pill so they need the labs faxed over [employer] so sera can get labs done. It is a two day process/ FAX [phone]. They are there now and would like to get it completed. Please call father when faxed. Ramiro Farmer - [phone] Thanks. Patient Call Back Number: [phone] Father Ramiro Farmer ING LEAD documented in this encounter Plan of Treatment Upcoming Encounters Date Type Department Care Team (Late st Contact Info) Description 02/28/2025 3:40 PM CDT Office Visit [facility] [address] [facility] [place] [address] Kari Montano MD [address] [place] [address] documented as of this encounter Visit Diagnoses Not on filedocumented in this encounter Care Teams User Experience Designer Relationship Specialty Start Date End Date Provider, No Pcp PCP - General 03/08/24 documented as of this encounter
--- OUTSIDE RECORDS SUMMARY | 2024-12-12 11:49 | XMS_ITS | Encounter Summary ---
Author Organization [facility] Address [address] [facility] [place] [address] Care Team Providers Care Auto Mechanics Instructor Name Role Phone Provider, No Pcp Primary Care Provider Unavailab le Encounter Details Date Type Department Care Team (Late st Contact Info) Description 09/04/2024 Telephone [facility] End[facility] [address] [place] [phone] Kari Montano MD [address] [place] [phone] Social History Tobacco Use Types Packs/Day [...] received the prescription. Call back number is [phone] Can leave detailed [id number] - [address] [place] [phone] [address] CRUSHER OPERATOR documented in this encounter Plan of Treatment Upcoming Encounters Date Type Department Care Team (Late Contact Info) Description 02/28/2025 3:40 PM CDT Office Visit [facility] [address] [place] [phone] Kari Montano MD [address] [place] [phone] documented as of this encounter Visit Diagnoses Not on filedocumented in this encounter Care Teams Auto Mechanics Instructor Relationship Specialty Start Date End Date Provider, No Pcp PCP - General 03/08/24 documented as of this encounter
--- OUTSIDE RECORDS SUMMARY | 2024-12-12 11:50 | XMS_ITS | Clinical Summary ---
Author Organization [facility] Address [address] [place] [address] Care Team Providers Care Uke Driver Name Role Phone None, Provider MD Primary [...] COVID-19 Vaccine ( - 2023- season) 2024 Meningococcal Vaccine Completed 06/07/2018 Meningococcal B Vaccine Aged Out No l onger eligible based on patient's age to complete this topic RSV Immunizations Under 20 Months Aged Out No longer eligible based on patient's age to complete this topic Insurance [place] Care Teams Uke Driver Relationship Specialty Start Date End Date None, Provider, MD PCP - General UNKNOWN PHYSICIAN SPECIALTY 07/09/23
--- OUTSIDE RECORDS SUMMARY | 2024-12-12 11:50 | XMS_ITS | Encounter Summary ---
Author Organization [facility] Address [address] [facility] [place] [address] Care Team Providers Care Central Sterile Tech Name Role Phone Provider, No Pcp Primary Care Provider Unavailab le Reason for Visit * Reason Onset Date Comments Returned Call 03/03/2024 Encounter Details Date Type Department Care Team (Late st Contact Info) Description 03/03/2024 Telephone [facility] Dermatology [address] [place] [phone] Connie Angeles MD [address] [place] [phone] Returned Call Social History Tobacco Use Types [...] Office Visit [facility] [address] [place] [address] [place] [phone] Kari Montano MD [address] [place] [address] documented as of this encounter Visit Diagnoses Not on filedocumented in this encounter Care Teams Central Sterile Tech Relationship Specialty Start Date End Date Provider, No Pcp PCP - General 03/08/24 documented as of this encounter
--- OUTSIDE RECORDS SUMMARY | 2024-12-12 11:50 | XMS_ITS | Clinical Summary ---
Author Organization [facility] Address [address] [facility] [place] [address] Care Team Providers Care Ruling Technician Name Role Phone Provider, No Pcp Primary Care Provider Unavailab le Source Comments [facility],non-owned Affiliates and Associated Physician Practices is amultiple site organization consisting of ambulatory clinics and hospital sitesin [place], [place], [place] and [place]. This disclosure is being madepursuant to the Care Everywhere program and may not contain all information available regarding this patient. Last updated 18.[facility] Allergies Active Allergy Reactions Criticality Noted Date Comments Shellfish-Derived Products Unknown Medications * Be aware that medications may not be up to date on this document. Alwaysverify current medications with the patient. Medication Sig Dispensed Refills Start Date End Date Status dexAMETHasone (Decadron) 1 MG tabletIndications: Hirsutism Take 1 (one) tablet by mouth once for 1 dose 1 tablet 09/08/2024 11/15/2024 Discontinued( List Clean-Up) Active Problems No known active problems Encounters Date Type Department Care Team Description 11/15/2024 3:40 PM CDT Office Visit [facility] End[facility]ology [address] [place] [phone] Kari Montano MD Screening for diabetes mellitus (DM) (Primary Dx); Hirsutism 11/15/2024 Travel 09/25/2024 Telephone [facility] - Endocr[facility]ology [address] [place] [phone] Kari Montano MD from Last 3 Months Social History Tobacco Use Types Packs/Day Years Used Date Smoking Tobacco: Never Sex and Gender Information Value Date Recorded Sex Assigned at Not on file Gender Identity Not on file Sexual Orientation Not on file Last Filed Vital Signs Vital Sign Reading Time Taken Comments Blood Pressure 105/71 11/15/2024 3:19 PM CDT Pulse 86 11/15/2024 3:19 PM CDT Temperature - - Respiratory Rate - - Oxygen Saturation 98% 11/15/2024 3:19 PM CDT Inhaled Oxygen Concentration - - Weight 96.6 kg (213 lb) 11/15/2024 3:19 PM CDT Height 165.1 cm (5' 5 ) 08/09/2024 3:04 PM SHRINKER Body Mass Index 35.45 08/09/2024 3:04 PM SHRINKER Plan of Treatment Upcoming Encounters Date Type Department Care Team (Late st Contact Info) Description 02/28/2025 3:40 PM CDT Office Visit [facility] - Endocrinology [address] [facility], [place] [phone] Kari Montano MD [address] [place] [address] Health Maintenance Due Date Last Done Comments PAP SMEAR 2000 HIV SCREENING 2015 HPV VACCINE (1 - 3-dose series) 2015 CHLAMYDIA/GONORRHEA SCREENING 2016 HEPATITIS C SCREENING 09/29/2018 DTAP/TDAP/TD VACCINES (1 - Tdap) 2019 HEPATITIS B VACCINE (1 of 3 - 19+ 3-dose series) 2019 COVID-19 VACCINE (1 - 2023-2 5 season) 2024 DEPRESSION SCREENING 09/06/2024 INFLUENZA VACCINE (Season Ended) 2025 ZOSTER VACCINE (1 of 2) 2050 HIB VACCINE Aged Out No longer eligi ble based on patient's age to complete this topic MENINGOCOCCAL (Group B) VACC INE SHARED DECISION-MAKING Aged Out No longer eligibl e based on patient's age to complete this topic MENINGOCOCCAL GROUPS A/C/Y/W VACCINE Aged Out No longer eligible b ased on patient's age to complete this topic PNEUMOCOCCAL VACCINE Aged Out No long er eligible based on patient's age to complete this topic Procedures Procedure Name Priority Date/Time Associated Diagnosis Comments HEMOGLOBIN A1C - POINT OF CARE (AMB) [facility] Routine 11/15/2024 4:10 PM CDT Screening for diabetes mellitus (DM) from Last 3 Months Results * HEMOGLOBIN A1C - POINT OF CARE (AMB) [facility] (11/15/2024 4:10 PM CDT) Hemoglobin A1c POCT 5.3 % [facility] BLOOD SPECIMEN / Unknown 11/15/2024 4:10 PM CDT Didier Howard MD LAB - POINT OF CARE ORDERABLES [facility] [address] [facility] [address] [facility] [place] [address], [facility] [phone] from Last 3 Months Care Teams Ruling Technician Relationship Specialty Start Date End Date Provider, No Pcp PCP - General 03/08/24
[2024-12-20 02:58] LABS: Cortisol, Saliva 0.07 mcg/dL
[2024-12-20 02:58] LABS: Cortisol, Saliva 0.06 mcg/dL
[2024-12-20 02:58] LABS: Cortisol, Saliva <0.03 mcg/dL
== END 2024-12-12 10:32 | disposition home or self-care (01) ==
DX: L68.0 Hirsutism (principal)
CPT/HCPCS: 82530

== ENCOUNTER 2025-02-11 14:27 | Emergency (ER) | payer OTHER, SELFPAY ==
[2025-02-11 14:43] VITALS: BP 127/77; PULSE 83; RESP 16; TEMP 36.6; O2SAT 98
--- NOTE | 2025-02-11 14:46 | ED_ITS ---
HPI - URI/Sore Throat General Chief Complaint: Upper Respiratory Infection Stated Complaint: throat hurts, headache, cold and sweaty History of Present Illness HPI Narrative: 24 y/o female with hx asthma presented for c/o sore throat, headache, and subjective fever and chills. Onset 2 days. Denies sob, wheezing, vomiting or lethargy. Taking Nyquil, tylenol and ibuprofen. Related Data Home Medications ?Medication ?Instructions ?Recorded ?Confirmed ?Last Taken ?Type albuterol sulfate 90 mcg/actuation inhalation 09/06/24 Unknown History aerosol inhaler Allergies Allergy/AdvReac Type Severity Reaction Status Date / Time No Known Allergies Allergy Verified 02/11/25 14:39 Review of Systems Review of Systems: per [facility] Past Medical History Medical History Asthma Exam Narrative: GENERAL: well-appearing, no acute distress. EYES: conjunctivae clear ENT: Mucous membranes moist. TMs pearly mederos with normal light reflex bilaterally; no tragal tenderness. Oropharynx erythematous without lesions. Tonsils enlarged 2+ and without exudate. No drooling, no hoarseness, no trismus, uvula midline. No tripod positioning, hot potato voice, or soft palate swelling. NECK: Supple. No lymphadenopathy CHEST: Clear to auscultation, breath sounds equal. No respiratory distress, speaks in full sentences. HEART: Regular rate and rhythm. No murmur heard. SKIN: Warm, dry, no rash. NEURO: Alert and oriented x3. Course Course Emergency Course: Patient is aware of diagnosis, understands and agrees to treatment plan. Anticipatory guidance given. Patient agrees to follow-up as directed and is aware of reasons to seek care at the emergency department. Portions of this record may have been created with voice recognition software Level of Care: Express Care Visit Vital Signs Vital signs: Vital Signs Temperature 97.8 F 02/11/25 14:43 Pulse Rate 83 02/11/25 14:43 Respiratory Rate 16 02/11/25 14:43 Blood Pressure 127/77 02/11/25 14:43 Pulse Oximetry 98 02/11/25 14:43 Temperature 97.8 F 02/11/25 14:43 Pulse Rate 83 02/11/25 14:43 Respiratory Rate 16 02/11/25 14:43 Blood Pressure 127/77 02/11/25 14:43 Pulse Oximetry 98 02/11/25 14:43 MDM - URI/Sore Throat MDM Narrative Medical decision making narrative: neg flu covid and strep result reviewed with pt. Advise supportive treatments and s/s to go to the ER. Patient is appropriate for outpatient treatment and follow-up. Differential Diagnosis Differential diagnosis: Likely upper respiratory infection, viral infection and pharyngitis Lab Data Labs: Lab Results 02/11/25 Range/Units 14:53 POC Grp A Strep Screen Negative (Negative) Discharge Plan Discharge Clinical Impression: Upper respiratory infection Patient Disposition: Home Condition: Stable Instructions: Antibiotic Form, Upper Respiratory Infection (ED) Additional Instructions: Flu and COVID negative. Rapid strep swab was negative today You will be notified in a few days if the culture comes back positive for strep, and appropriate antibiotics will be called in at that time. if symptoms are due to a viral illness, it is not treated with antibiotics. Viral symptoms can be present for up to 10-14 days. Recommendations: Flonase spray and Zyrtec for sinus congestion Cough syrup may cause drowsiness; avoid driving or take it at night time. Tylenol every 8 hours as needed for pain/fever Soft foods, cool liquids, warm tea. Gargle with warm saltwater twice a day. Chloraseptic spray and throat lozenges. Rest and stay hydrated. --Follow up with your PCP --Go to the ER immediately if you cannot swallow your saliva, trouble breathing/wheezing, throat swelling, pain is persistent and severe Patient Language: Amharic Prescriptions: No Action albuterol sulfate 90 mcg/actuation HFA aerosol inhaler INHALATION Follow-up/Referrals: PHYSICIAN,TAFE REGISTRAR [Primary Care Provider] - Time of Disposition: 14:59
[2025-02-11 14:55] LABS: EDSTREPNEGPOS1 Negative (Negative)
[2025-02-11 14:59] LABS: EDCOVIDSCREEN Negative (Negative); EDINFLUASCREEN Negative (Negative); EDINFLUBSCREEN Negative (Negative)
== END 2025-02-11 15:01 | disposition home or self-care (01) ==
PROVIDERS: Emergency Provider Nurse Practitioner Family
DX: J06.9 Acute upper respiratory infection, unspecified (principal); Z20.822 Contact with and (suspected) exposure to COVID-19; J45.909 Unspecified asthma, uncomplicated
CPT/HCPCS: 87081; 87426; 87804; 87880; 99213; G0463

== ENCOUNTER 2025-04-18 19:46 | Emergency (ER) | payer BC, SELFPAY ==
--- NOTE | 2025-04-18 19:47 | ED_ITS ---
HPI - General Adult General Chief complaint: Upper Respiratory Infection Stated complaint: Strep Symptoms Time Seen by Provider: 04/18/25 19:47 Source: patient Mode of arrival: ambulatory Limitations: no limitations History of Present Illness HPI narrative: Pt is a 24 y/o female presenting with c/o sore throat. sx began this morning Aggravating factors include swallowing. No tx initiated WINDOWS ADMINISTRATOR. NO known exposure t o COVID, FLU,Strep, PNA. No additional complaints. Related Data Home Medications ?Medication ?Instructions ?Recorded ?Confirmed ?Last Taken ?Type albuterol sulfate 90 mcg/actuation inhalation 09/06/24 Unknown History aerosol inhaler drospirenone 3 mg-ethinyl tablet 04/18/25 Unknown History estradiol 0.02 mg tablet Allergies Allergy/AdvReac Type Severity Reaction Status Date / Time No Known Allergies Allergy Verified 04/18/25 19:53 Review of Systems Review of Systems: CONSTITUTIONAL: Denies body aches, fever, chills, or sweats. EYES: Denies visual changes, redness, or discharge. ENT:Reports sore throat Denies rhinorrhea, congestion, or otalgia. CARDIOVASCULAR: Denies chest pain, palpitations, or edema. RESPIRATORY: Denies cough or dyspnea. GASTROINTESTINAL: Denies abdominal pain, nausea, vomiting, or diarrhea. GENITOURINARY: Denies dysuria or hematuria. SKIN: Denies rash, itching, or wounds. MUSCULOSKELETAL: Denies back pain, joint pain, or myalgia. NEUROLOGIC: Denies headache, numbness, tingling, or weakness. PSYCH: Denies depression or anxiety. All systems reviewed & are unremarkable except as noted in HPI and below [facility] Past Medical History Medical History Asthma Exam Narrative: GENERAL: Well-appearing, obese, and in no acute distress. HEAD: Normocephalic, atraumatic. EYES: EOMI. No redness or drainage. Conjunctivae normal. ENT: Mucous membranes pink and moist. Nares clear. No rhinorrhea. TMs normal bilaterally. Tonsils are 3+bilaterally with exudate, erythema. Throat normal. Uvula midline. No trismus NECK: Normal AROM. Supple. +anterior cervical lymphadenopathy. CHEST: No respiratory distress. Clear to auscultation. HEART: Regular rate and rhythm. No murmur appreciated. Normal peripheral pulses. MUSCULOSKELETAL: No bony tenderness. EXTREMITIES: Normal range of motion. No edema. SKIN: Warm, dry, no rash. Capillary refill normal. Normal skin turgor. NEURO: No focal deficits. Alert and oriented x3. Gait steady. PSYCH: Normal affect. No signs of depression or anxiety. Course Course Level of Care: Express Care Visit Medical Decision Making Lab Data Lab results reviewed: Yes I reviewed the patient's lab results. Discharge Plan Discharge Clinical Impression: Pharyngitis due to group A beta hemolytic Streptococci Patient Disposition: Home Condition: Stable Instructions: Antibiotic Form, Strep Throat (ED) Additional Instructions: Go straight to ER should your symptoms become worse or should any new symptoms develop Patient Language: Kiswahili Prescriptions: New cephalexin 500 mg capsule 500 mg PO Q12H 10 Days Qty: 20 0RF No Action drospirenone-ethinyl estradiol 3-0.02 mg tablet albuterol sulfate 90 mcg/actuation HFA aerosol inhaler INHALATION Follow-up/Referrals: UNKNOWN,DOCTOR [Non-Staff] - 04/19/25 Stand Alone Forms: Work/School Release IP Time of Disposition: 19:53
[2025-04-18 19:56] VITALS: BP 115/84; PULSE 115; RESP 16; TEMP 36.5; O2SAT 100
[2025-04-18 20:00] LABS: EDSTREPNEGPOS1 Positive (Negative)
== END 2025-04-18 20:00 | disposition home or self-care (01) ==
PROVIDERS: Emergency Provider Registered Nurse
DX: J02.0 Streptococcal pharyngitis (principal); J45.909 Unspecified asthma, uncomplicated
CPT/HCPCS: 87880; 99213; G0463

== ENCOUNTER 2025-04-26 10:32 | Emergency (ER) | payer OTHER, SELFPAY ==
[2025-04-26 10:51] VITALS: BP 127/85; PULSE 95; RESP 16; TEMP 37.3; O2SAT 100
--- NOTE | 2025-04-26 11:17 | ED.URI ---
HPI - URI/Sore Throat General Chief Complaint: Upper Respiratory Infection Stated Complaint: Strep Symptoms Time Seen by Provider: 04/26/25 11:00 Source: patient, RN notes reviewed and old records reviewed Mode of arrival: ambulatory Limitations: no limitations History of Present Illness HPI Narrative: Patient presents today complaining of persistent sore throat. She was initially seen here at [facility] on 04/18/2025, and diagnosed with strep throat and placed on a 10 day course of Keflex. Reports no improvement in symptoms and states symptoms have worsened to now include tonsillar exudate. Today she rates her pain 7/10 and has been taking ibuprofen with no improvement. Denies shortness of breath or difficulty swallowing. Related Data Home Medications ?Medication ?Instructions ?Recorded ?Confirmed ?Last Taken ?Type drospirenone 3 mg-ethinyl tablet 04/18/25 Unknown History estradiol 0.02 mg tablet Allergies Allergy/AdvReac Type Severity Reaction Status Date / Time shellfish derived Allergy Severe Anaphylaxis Verified 04/26/25 11:16 [facility] Past Medical History Medical History Asthma Comments At time of signature, I have reviewed and agree with nursing past medical, surgical, social and family history unless otherwise noted. Please see nursing chart for further information. There is no relevant family history pertinent to the presenting complaint Exam Narrative: GENERAL: Well-appearing, well-nourished, and in no acute distress. HEAD: Normocephalic, atraumatic. EYES: EOMI. No redness or drainage. Conjunctivae normal. ENT: Mucous membranes pink and moist. Nares clear. No rhinorrhea. TMs normal bilaterally. Throat mildly erythematous. Tonsils 3+ with white exudate bilaterally. Uvula midline. NECK: Normal AROM. Supple. No lymphadenopathy. CHEST: No respiratory distress. Clear to auscultation. HEART: Regular rate and rhythm. No murmur appreciated. EXTREMITIES: Normal range of motion. No edema. SKIN: Warm, dry, no rash. Capillary refill normal. Normal skin turgor. NEURO: No focal deficits. Alert and oriented x3. Gait steady. PSYCH: Normal affect. No signs of depression or anxiety. Course Course Level of Care: [facility] Visit Vital Signs Vital signs: Vital Signs Temperature 99.1 F 04/26/25 10:51 Pulse Rate 95 08/21/25 10:51 Respiratory Rate 16 04/26/25 10:51 Blood Pressure 127/85 04/26/25 10:51 Pulse Oximetry 100 04/26/25 10:51 Temperature 99.1 F 04/26/25 10:51 Pulse Rate 95 04/26/25 10:51 Respiratory Rate 16 04/26/25 10:51 Blood Pressure 127/85 04/26/25 10:51 Pulse Oximetry 100 04/26/25 10:51 Reviewed MDM - URI/Sore Throat MDM Narrative Medical decision making narrative: 24-year-old female patient presents with persistent sore throat set she was diagnosed with strep throat on 04/18/2025. Now reports tonsillar exudate. She has been taking Keflex without improvement. Upon exam, patient is tonsils are 2 to 3+ with white exudate bilaterally. Will not retest patient, but will change antibiotics to Augmentin and give a 1 time dose of 10 mg oral dexamethasone for swelling and discomfort. Vital signs stable. Patient agrees with plan. Anticipatory guidance given. Differential Diagnosis Differential diagnosis: Likely pharyngitis and other (Strep throat) Critical Care Time Critical Care Time Critical Care Time: No Discharge Plan Discharge Clinical Impression: Strep throat Patient Disposition: Home Condition: Stable Instructions: Strep Throat (DC) Additional Instructions: Stop the Keflex and start the Augmentin. Continue ibuprofen or Aleve for pain if needed. Follow-up with your PCP next week if symptoms are not improving. Go to the ER immediately if symptoms worsen to include shortness of breath, difficulty swallowing, development of new fever greater than 100.3. Patient Language: Romanian Prescriptions: New amoxicillin-pot clavulanate 875-125 mg tablet 1 tablet PO Q12H 10 Days Qty: 20 0RF No Action drospirenone-ethinyl estradiol 3-0.02 mg tablet cephalexin 500 mg capsule 500 mg PO Q12H 10 Days Qty: 20 0RF Follow-up/Referrals: PHYSICIAN,ROCKET ENGINE MECHANIC [Primary Care Provider, Internal Medicine] Time of Disposition: 11:21
[2025-04-26] MEDS: dexAMETHasone SOD PHOS INJ 10 MG/ML 1 ML VIAL BY MOUTH (11:22)
== END 2025-04-26 11:39 | disposition home or self-care (01) ==
PROVIDERS: Emergency Provider Nurse Practitioner
DX: J02.0 Streptococcal pharyngitis (principal); J45.909 Unspecified asthma, uncomplicated
CPT/HCPCS: 99213; G0463; J1100